=== PATIENT | female | born 1970 | race Caucasian/White ===

== ENCOUNTER → 2017-02-17 | Outpatient (CLI) | payer OTHER ==
[~2017-02-17] MED LIST: SYNTHROID0.075 MG/T PO
== END ==
LOC: MC.RAD 07:35
DX: Z12.31 Encounter for screening mammogram for malignant neoplasm of breast (principal)

== ENCOUNTER → 2018-03-06 | Outpatient (CLI) | payer OTHER | LOC: MC.RAD 07:20 | DX: Z12.31 Encounter for screening mammogram for malignant neoplasm of breast (principal) ==

== ENCOUNTER → 2019-03-13 | Outpatient (CLI) | payer OTHER | LOC: MC.RAD 07:09 | DX: Z12.31 Encounter for screening mammogram for malignant neoplasm of breast (principal) ==

== ENCOUNTER → 2020-04-08 | Outpatient (CLI) | payer OTHER | LOC: MC.RAD 07:59 | DX: Z12.31 Encounter for screening mammogram for malignant neoplasm of breast (principal) ==

== ENCOUNTER → 2021-04-09 | Outpatient (CLI) | payer OTHER | LOC: MC.RAD 07:19 | DX: Z12.31 Encounter for screening mammogram for malignant neoplasm of breast (principal) ==

== ENCOUNTER → 2023-04-13 | Outpatient (CLI) | payer OTHER | LOC: MC.RAD 07:24 | DX: Z12.31 Encounter for screening mammogram for malignant neoplasm of breast (principal) ==